=== PATIENT | female | born 2000 ===

== ENCOUNTER → 2020-02-16 | Outpatient (CLI) | payer OTHER ==
--- NOTE | 2020-02-16 16:06 | Diagnostic Imaging Report ---
PROCEDURE: US Non-ob pelvis comp/trans. INDICATION: Irregular cycles, cramping. TECHNIQUE: Multiple real time davis scale sonographic images were obtained of the pelvis transabdominally and endovaginally. CORRELATION STUDY: None FINDINGS: UTERUS: 5.9 x 3.4 x 4.4 cm. The uterus appears unremarkable. ENDOMETRIUM: 1 mm. The endometrium appearing unremarkable. RIGHT OVARY: 2.5 x 3.0 x 2.3 cm The right ovary has an unremarkable appearance. No concerning mass. Blood flow is present. LEFT OVARY: 3.2 x 2.2 x 2.2 cm The left ovary has an unremarkable appearance. No concerning mass. Blood flow is present. No significant free pelvic fluid. IMPRESSION: 1. Unremarkable appearing pelvic ultrasound examination. Dictated by: Dictated on workstation # [id number]
== END ==
LOC: RAD 15:00
PROVIDERS: ATTEND Nurse Practitioner Family
DX: N94.6 Dysmenorrhea, unspecified (principal); N92.6 Irregular menstruation, unspecified
CPT/HCPCS: 76830; 76856